=== PATIENT | male | born 2000 | race Caucasian/White ===

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

== ENCOUNTER 2018-07-12 23:17 | Emergency (ER) | payer BC ==
[~2018-07-12] VITALS: Ht 180.3 cm; Wt 106.6 kg
[2018-07-13 01:40] VITALS: BP 132/78
== END 2018-07-13 01:40 | disposition home or self-care (01) ==
LOC: ED 23:17
DX: S09.8XXA Other specified injuries of head, initial encounter (principal); Y04.8XXA Assault by other bodily force, initial encounter; Y93.89 Activity, other specified; Y92.89 Other specified places as the place of occurrence of the external cause; Y99.8 Other external cause status